=== PATIENT | female | born 1960 | race Caucasian/White ===

== ENCOUNTER → 2017-05-22 | Outpatient (CLI) | payer BC ==
--- NOTE | 2017-05-22 15:14 | DIAGNOSTIC IMAGING REPORT ---
BONE SCAN 3 PHASE LIMITED CLINICAL HISTORY: SPINAL AND SACRAL LESIONS TECHNIQUE: Multi phase evaluation following the administration of technetium 99m MAA. COMPARISON STUDY: MRI 05/16/2017 611 MRI FINDINGS: Initial vascular flow images are unremarkable. dynamic and delayed images show increased signal of the sacroiliac joints bilaterally. There is a subtle transverse region of mildly increased signal mid sacrum. This potentially represents sacroiliac fractures and secondary sacroiliitis bilaterally. No additional focus of increased activity is present. IMPRESSION: Findings essentially nonspecific but nevertheless are suggestive of bilateral sacral ileitis combine with a transverse sacral insufficiency fracture. The above report was generated using voice recognition software. It may contain grammatical, syntax or spelling errors. Electronically signed by: Chalo Avila M.D. 05/22/2017 3:13 PM Dictated Date/Time: 05/22/2017 3:10 PM
== END | disposition home or self-care (01) ==
LOC: C.NUCL 10:38
PROVIDERS: ATTEND Pain Medicine Interventional Pain Medicine
DX: M89.9 Disorder of bone, unspecified (principal)